=== PATIENT | male | born 1965 | race Caucasian/White ===

== ENCOUNTER 2025-01-07 20:35 | Emergency (ER) | payer MEDICARE, SELFPAY ==
[2025-01-07 20:52] VITALS: BP 134/83; PULSE 72; RESP 16; TEMP 36.8; O2SAT 97; BMI 32.3
[2025-01-07 21:55] VITALS: BP 125/66; PULSE 61; O2SAT 95
--- NOTE | 2025-01-07 22:10 | ED_ITS ---
HPI - Neck Pain/Injury 2 General: Chief Complaint: Headache Stated Complaint: sinus head pain, ear pain Time Seen by Provider: 01/07/25 21:55 Source: patient Mode of arrival: ambulatory Limitations: no limitations History of Present Illness: Patient is a 59-year-old male who presents to ED today with a complaint of left- sided neck pain, difficulty swallowing, left ear pain. He states symptoms have been going on for 2 months. He initially felt symptoms could be attributed to an ear infection. He was reportedly seen at a walk-in clinic 2 weeks ago and prescribed antibiotics and steroids for a possible ear infection but this has not helped with symptoms. His main complaint is pain to the left side of his neck. He states he is having trouble swallowing stating it feels like I have a hole in my throat and feels like when he swallows, his food will often go down my windpipe . He does feel like the left side of his neck is swollen. He has no neurologic deficits. He is not complaining of a headache. No fevers. MD complaint: neck pain Onset (ago): month(s) (2 months) Radiation: left lateral Severity: severe Duration: constant Relieving factors: none Exacerbating factors: none Associated symptoms: Reports dysphagia; Denies dizziness, headache(s) or nausea Related Data Allergies Allergy/AdvReac Type Severity Reaction Status Date / Time Penicillins Allergy ALGY-Rash Verified 01/07/25 20:58 Review of Systems 2 Const: Denies: fever(s), chills, body aches, fatigue or malaise Eyes: Denies: change in vision, blurry vision, photophobia, floaters or seeing flashes ENMT: Reports: throat pain, odynophagia and ear or mastoid pain; Denies: uvular edema, enlarged tonsils, hoarseness, mouth pain, swelling of lips/tongue, oral sores, bleeding gums, dental pain, ear discharge, change in hearing, nasal discharge or nasal congestion Card: Denies: chest pain Resp: Denies: dyspnea GI: Reports: dysphagia and heartburn; Denies: abdominal pain, nausea or vomiting Neuro: Denies: headache(s) or dizziness Physical Exam 2 Const: COMMON NORMALS: patient oriented x3, no limitations, alert and well nourished GENERAL APPEARANCE: cooperative and disheveled NUTRITIONAL APPEARANCE: obese ORIENTATION/CONSCIOUSNESS: Yes awake, Yes oriented to person, Yes oriented to place and Yes oriented to time HENMT: COMMON NORMALS: normocephalic, atraumatic, external ears normal and Normal external nose present HEAD & SCALP: normal to inspection, normocephalic and atraumatic FACE & SINUS: normal facial exam; no erythema and no edema NOSE: Normal external nose present EXTERNAL EAR: Yes external ears normal EXTERNAL AUDITORY CANAL: Abnormal EAC present EAC laterality: bilateral cerumen impaction MOUTH: Normal oral and palatal mucosa present, lip normal, tongue normal and Normal salivary glands and ducts present TEETH & GINGIVA: Yes edentulous THROAT: posterior oropharynx normal, tonsils normal and uvula midline (bifid uvula ); no uvular edema Neck/C-Spine: COMMON NORMALS: full ROM, no lymphadenopathy and no meningeal signs GENERAL: Yes normal visual inspection, No anterior neck swelling and No submandibular swelling OTHER: TTP L anterior neck-no obvious lymphadenopathy or masses appreciated Resp: COMMON NORMALS: normal respiratory effort and clear to auscultation bilaterally AUSCULTATION: clear to auscultation bilaterally Cardio: COMMON NORMALS: regular rate and regular rhythm RATE: regular rate RHYTHM: regular rhythm Neuro: COMMON NORMALS: patient oriented x3 SENSORIUM/ORIENTATION: Yes alert, Yes oriented to person, Yes oriented to place and Yes oriented to time MENINGEAL SIGNS: Yes no meningeal signs Course 2 Vital Signs: Vital signs: Vital Signs Temperature 98.2 F 01/07/25 20:52 Pulse Rate 61 01/07/25 21:55 Respiratory Rate 16 01/07/25 20:52 Blood Pressure 125/66 01/07/25 21:55 Pulse Oximetry 95 01/07/25 21:55 Oxygen Delivery Me thod Room Air 01/07/25 21:55 MDM - Neck Pain/Injury Medical Decision Making Patient is a 59-year-old male here for main complaint of left-sided neck pain and difficulty swallowing. He states symptoms have been present over the past 2 months or so. He was found to have a mass to the left side of his epiglottis with recommendations for direct visualization and possible tissue sampling to rule out malignancy. Patient is an everyday/chronic smoker. Discussed importance of following up with ENT so they can obtain biopsy. Patient clinically appears no acute distress. He is not having any difficulty breathing or concern for airway compromise. No stridor, drooling, fever, or change in voice. Symptoms have been present for 2 months. Discussed case with Dr. Soni who agrees with plan at this time. Return precautions discussed. Medical Records I reviewed the patient's medical records. Lab Data I reviewed the patient's lab results. 01/07/25 22:20 01/07/25 22:[address] 01/07/25 22:10 IMPRESSION: Masslike thickening to the left aspect of the epiglottis up to 18 mm with partial effacement of the left vallecula and piriform sinus, perhaps secondary to underlying masslike mucosal thickening and/or secretions, direct visualization and possible tissue sampling advised to assess for possible malignancy. Laboratory Results WBC 5.43 10^3/uL (3.29-11.43) 01/07/25 22:20 RBC 4.54 10^6/uL (3.85-5.65) 01/07/25 22:20 Hgb 14.20 g/dL (11.27-16.99) 01/07/25 22:20 Hct 42.7 % (37-53) 01/07/25 22:20 MCV 94.1 fl (82-101) 01/07/25 22:20 MCH 31.3 pg (27-33) 01/07/25 22:20 MCHC 33.3 g/dL (30-55) 01/07/25 22:20 RDW 13.3 % (12.1-15.1) 01/07/25 22:20 Plt Count 148 10^3/cmm (157-399) L 01/07/25 22:20 MPV 9.8 fL (7.4-10.4) 01/07/25 22:20 Neut % (Auto) 50.0 % 01/07/25 22:20 Lymph % (Auto) 37.6 % 01/07/25 22:20 Jessamine % (Auto) 9.9 % 01/07/25 22:20 Eos % (Auto) 1.7 % 01/07/25 22:20 Baso % (Auto) 0.4 % 01/07/25 22:20 Neut # (Auto) 2.72 10^3/uL (1.8-7.7) 01/07/25 22:20 Lymph # (Auto) 2.0 10^3/uL (0.8-4.8) 01/07/25 22:20 Jessamine # (Auto) 0.5 10^3/uL (0.2-0.9) 01/07/25 22:20 Eos # (Auto) 0.1 10^3/uL (0.0-0.8) 01/07/25 22:20 Baso # (Auto) 0.0 10^3/uL (0.0-0.1) 01/07/25 22:20 Nucleated RBC % (auto) 0 % 01/07/25 22:20 Nucleated RBCs # 0.0 /100WBC 01/07/25 22:20 Sodium 135 mmol/L (136-145) L 01/07/25 22:59 Potassium 4.4 mmol/L (3.5-5.1) 01/07/25 22:59 Chloride 102 mmol/L (98-107) 01/07/25 22:59 Carbon Dioxide 24 mmol/L (22-29) 01/07/25 22:59 Anion Gap 13.4 (5-19) 01/07/25 22:59 BUN 16 mg/dL (8-23) 01/07/25 22:59 Creatinine 0.6 mg/dL (0.7-1.2) L 01/07/25 22:59 GFR Calculation 137.0 mL/min (90-130) H 01/07/25 22:59 Glucose 83 mg/dL (65-115) 01/07/25 22:59 Calculated Osmolality 280 mOsm/kg (285-295) L 01/07/25 22:59 Calcium 8.3 mg/dL (8.5-10.5) L 01/07/25 22:59 Total Bilirubin 0.5 mg/dL (0.15-1.2) 01/07/25 22:59 AST 48 U/L (0-40) H 01/07/25 22:59 ALT 55 U/L (0-41) H 01/07/25 22:59 Alkaline Phosphatase 81 U/L (40-130) 01/07/25 22:59 Total Protein 7.2 g/dL (6.6-8.7) 01/07/25 22:59 Albumin 3.4 g/dL (3.5-5.2) L 01/07/25 22:59 Globulin 3.8 g/dL (1.3-4.6) 01/07/25 22:59 All radiology interpretation(s) finalized by discharge Discharge Plan Discharge Patient Disposition: Home Clinical Impression: Mass of epiglottis Condition: Stable Discharge Orders: Discharge ED (Routine); Ordered 01/08/25 Ordered By: Adelina Ragland Patient Instructions: Patient Portal & [place] Instructions Activity Restrictions/Additional Instructions: As we discussed, CT imaging today showed a mass to the left side of your epiglottis. This will need to be directly visualized and biopsied by ENT (ear/nose/throat). I have placed a case management referral to try to get you an appointment to see ENT as soon as possible. You need to return to the emergency department for onset of difficulty breathing, difficulty swallowing, fevers, or any other concerns you may have. Print Language: Romanian Coding Level of Care Code ED Planishing Press Operator for Yu Ingram
--- NOTE | 2025-01-07 22:10 | CTR_ITS ---
PROCEDURE INFORMATION: Exam: CT Neck With Contrast Exam date and time: 01/08/2025 12:10 AM Age: 59 years old Clinical indication: Throat pain; Additional info: L sided pain/trouble swallowing TECHNIQUE: Imaging protocol: Computed tomography of the neck with contrast. Radiation optimization: All CT scans at this facility use at least one of these dose optimization techniques: automated exposure control; mA and/or kV adjustment per patient size (includes targeted exams where dose is matched to clinical indication); or iterative reconstruction. Contrast material: OMNI 350; Contrast volume: 100 ml; Contrast route: INTRAVENOUS (IV); COMPARISON: No relevant prior studies available. RADIATION DOSE METRICS: Total DLP (mGy-cm): 272.44 FINDINGS: Salivary glands: Normal. Glands are normal in size. Pharynx: Masslike thickening to the left aspect of the epiglottis up to 18 mm with partial effacement of the left vallecula and piriform sinus, perhaps secondary to underlying masslike mucosal thickening and/or secretions, direct visualization and possible tissue sampling advised to assess for possible malignancy. Larynx: Unremarkable. Epiglottis is normal. Thyroid: Normal. No enlarged or calcified nodules. Trachea: Visualized trachea is unremarkable. Lungs: Unremarkable as visualized. Lymph nodes: Unremarkable. No lymphadenopathy. Bones/joints: Unremarkable. No acute fracture. Soft tissues: Unremarkable. No significant soft tissue swelling. CT/CT neck w con* [id number] IMPRESSION: Masslike thickening to the left aspect of the epiglottis up to 18 mm with partial effacement of the left vallecula and piriform sinus, perhaps secondary to underlying masslike mucosal thickening and/or secretions, direct visualization and possible tissue sampling advised to assess for possible malignancy.
[2025-01-07] MEDS: morphine 4 mg/mL SDV 1 mL IVP (22:28)
[2025-01-07] MEDS: ondansetron 2 mg/ML SDV 2 mL 4 MG IVP (22:32)
[2025-01-07 22:44] LABS: Hematocrit 42.7 % (37-53); Hemoglobin 14.20 g/dL (11.27-16.99); Mean Corpuscular HGB Conc 33.3 g/dL (30-55); Mean Corpuscular Hemoglobin 31.3 pg (27-33); Mean Corpuscular Volume 94.1 fl (82-101); Nucleated Red Blood Cells % 0 %; Platelet Count 148 10^3/cmm (157-399); Red Blood Count 4.54 10^6/uL (3.85-5.65); White Blood Count 5.43 10^3/uL (3.29-11.43)
[2025-01-07 23:25] LABS: Alanine Aminotransferase 55 U/L (0-41); Albumin Level 3.4 g/dL (3.5-5.2); Alkaline Phosphatase 81 U/L (40-130); Aspartate Amino Transferase 48 U/L (0-40); Blood Urea Nitrogen 16 mg/dL (8-23); Calcium 8.3 mg/dL (8.5-10.5); Carbon Dioxide 24 mmol/L (22-29); Chloride 102 mmol/L (98-107); Globulin 3.8 g/dL (1.3-4.6); Glucose 83 mg/dL (65-115); Osmolality Calculated 280 mOsm/kg (285-295); Sodium 135 mmol/L (136-145); Total Protein 7.2 g/dL (6.6-8.7)
[2025-01-07 23:31] LABS: Anion Gap 13.4 (5-19); Potassium 4.4 mmol/L (3.5-5.1)
[2025-01-08] MEDS: iohexol 350 mg/mL 500 mL Btl (per mL) IV (00:32)
--- OUTSIDE RECORDS SUMMARY | 2025-01-08 05:28 | XMS_ITS | Clinical Summary ---
Author Organization [facility] Address [address] [place] [address] Care Team Providers Care Brass Bobbin Winder Name Role Phone Unavailable Primary Care Provider Unavailabl e Allergies No known active allergies Medications predniSONE (DELTASONE) 20 mg tabletIndication s:Acute pharyngitis, unspecified etiology Take 1 Tablet (20 mg) by mouth daily with breakfast for 5 days. 5 Tablet 5 12/19/19 25 amoxicillin-clav ulanate (AUGMENTIN) 875-125 mg tabletIndication s:Acute pharyngitis, unspecified etiology Take 1 Tablet by mouth every 12 hours for 7 days. 14 Tablet 5 12/21/19 25 Active Problems No known active problems Encounters Date Type Department Care Team Description 12/18/2024 External Device Data [facility] Provider, Abstract 12/17/2024 External Device Data [facility] Provider, Abstract 12/17/2024 External Device Data [facility] Provider, Abstract 12/13/2024 4:00 PM CDT Office Visit [facility] [address] [place] [id number] ZamudioMay, [facility] Acute pharyngitis, unspecified etiology (Primary Dx); Impacted cerumen, bilateral from Last 3 Months Social History Tobacco Use Types Packs/Day Years Used Date Smoking Tobacco: Every Day Cigarettes 0.5 46.9 Started: 1980 Smokeless Tobacco: Never Tobacco Cessation:Ready to Q uit: No; Counseling Given: Not Answered Alcohol Use Standard Drinks/Week Comments Not Currently 0 (1 standard drink = 0.6 oz pur e alcohol) Sex and Gender Information Value Date Recorded Sex Assigned at Not on file Legal Sex Male 11:42 AM CDT Gender Identity Not on file Sexual Orientation Not on file Last Filed Vital Signs Vital Sign Reading Time Taken Comments Blood Pressure 140/80 12/13/2024 4:10 PM CDT Pulse 65 12/13/2024 4:10 PM CDT Temperature 37.1 C (98.7 F) 12/13/2024 4:10 PM CDT Respiratory Rate 18 12/13/2024 4:10 PM CDT Oxygen Saturation 99% 12/13/2024 4:10 PM CDT Inhaled Oxygen Concentration - - Weight 101.2 kg (223 lb 3.2 oz) 12/13/2024 4:10 PM CDT Height 177.8 cm (5' 10 ) 12/13/2024 4:10 PM CDT Body Mass Index 32.03 12/13/2024 4:10 PM CDT Plan of Treatment Health Maintenance Due Date Last Done Comments Pre-Diabetes and Diabetes Screening 1965 COLORECTAL SCREENING 01/23/2008 Colorectal Cancer Screening 01/23/2008 FIT-DNA Q 3 years 01/23/2008 FIT/FOBT Q 1 year 01/23/2008 Flex Sig/CT Colonography Q 5 years 01/23/2008 DTAP/TDAP/TD VACCINES (1 - Tdap) 08/08/2009 08/08/19 Lung Cancer Screening 2013 ZOSTER VACCINE (1 of 2) 2013 INFLUENZA VACCINE (#1) 2024 RSV VACCINE (60+ or ) (1 - 1-dose 75+ series) 2038 Insurance [facility]
--- NOTE | 2025-01-09 08:48 | DCPLANNER ---
faxed ent referral to [facility]
== END 2025-01-08 01:01 | disposition home or self-care (01) ==
PROVIDERS: Emergency Provider Physician Assistant
DX: J38.7 Other diseases of larynx (principal)
CPT/HCPCS: 36415; 70491; 80053; 85025; 96374; 96375; 99285; J2270; J2405